=== PATIENT | male | born 1955 | race Caucasian/White ===

== ENCOUNTER 2021-10-25 07:37 | Day surgery (SDC) | payer OTHER ==
[2021-10-22 15:27] LABS: Potassium 4.1 mmol/L (3.5-5.1)
[2021-10-22 15:44] LABS: SARS-CoV-2 Antigen Rapid Res Negative (Negative)
--- NOTE | 2021-10-23 11:32 | EKG ---
Test Date: 2021-10-22 Test Time: 14:52:06 Accessioner: PARVIZ MEASUREMENT RESULTS: Intervals: Rate: 61 FL: 136 QRSD: 82 QT: 396 QTc: 398 Sanders: P: 59 FL: 136 QRS: 30 T: 42 INTERPRETIVE STATEMENTS: Normal sinus rhythm Normal ECG No previous ECG available for comparison Electronically Signed On 10-23-21 11:31:15 CDT by Mode Miller
[2021-10-25] MEDS ORDERED: SODIUM HYPOCHLORITE 0.25% 473 ML ONE (07:58)
[2021-10-25] MEDS ORDERED: BUPIVACAINE 0.25% PF 10 ML VIAL ONE (08:11)
[2021-10-25] MEDS ORDERED: propofoL 200 MG/20 ML VIAL IV ONE (08:14)
[2021-10-25] MEDS ORDERED: FENTANYL CITR 100 MCG/2 ML IV ONE (08:15)
[2021-10-25] MEDS ORDERED: MIDAZOLAM HCL 2 MG/2 ML INJ IV ONE (08:15)
[2021-10-25] MEDS ORDERED: CELECOXIB 100 MG CAPSULE ONE (08:16)
[2021-10-25] MEDS ORDERED: NA CHLORIDE 0.9% 50 ML ONE (08:16)
[2021-10-25] MEDS ORDERED: Ringers Lactate 1,000 ML IV ONE (08:16)
[2021-10-25] MEDS ORDERED: CEFAZOLIN SODIUM 1 GM/VIAL ONE (08:16)
[2021-10-25] MEDS ORDERED: ACETAMINOPHEN 500 MG TAB ONE (08:16)
[2021-10-25] MEDS ORDERED: BUPIVACAINE 0.25% PF 10 ML VIAL IJ ONE ×2 (09:17)
--- NOTE | 2021-10-25 09:31 | P.OP ---
Preoperative diagnosis: LEFT neck infected cyst Postoperative diagnosis: LEFT neck infected cyst Primary procedure: Wide Excision of LEFT neck infected cyst Anesthesia: GETA + local Estimated blood loss: <1 cc Specimen: LEFT Neck Cyst Findings: ~ 2cm x 1cm cyst consistend with sebaceous Complications: None Transferred to: Recovery Room Condition: Good
[2021-10-25] MEDS ORDERED: KETOROLAC 30 MG/ML INJ ONE (09:33)
--- NOTE | 2021-10-25 10:18 | OP ---
Date of Procedure: 10/25/2021 Surgeon: Marcela Gomes MD, Preoperative Diagnosis: Left neck infected cyst. Postoperative Diagnosis: Left neck infected cyst. Procedure Performed: A wide local excision of infected left sebaceous cyst. Anesthesia: General endotracheal plus local with 0.25% Marcaine. Estimated Blood Loss: Less than 1 cc. Specimen: Left neck cyst. Findings: A 2 cm x 1 cm cyst consistent with a sebaceous type cyst on the left neck near the medial aspect of the clavicle. Complications: None. Disposition: The patient was transferred to the recovery room in good condition. Procedure In Detail: After informed consent was obtained, the patient was brought to the operative r oom, prepped and draped in the usual sterile fashion after adequate anesthesia achieved. An elliptic al incision was made circumferentially around the area of the left medial clavicle down to subcutaneo us tissues with a 15 blade. Electrocautery was used to dissect down and circumferentially remove a c yst located in this area approximately 2 cm x 1 cm. The area was inspected at this point for hemosta sis after this was removed and sent off for pathologic examination. Hemostatic maneuvers were requir ed only minimally at the skin level. The area was then copiously irrigated and closed with interrupt ed 3-0 nylon suture in an interrupted fashion. Sterile dressing placed over top. The patient tolera marcela the procedure well without evidence of complication and transferred to PACU in good condition. All counts were correct at the end of the case. ROHINI/LUIZAL Voice ID: [id number] Report ID: [id number]
[2021-10-25 11:12] VITALS: BP 102/80; TEMP 97.3; O2SAT 94
== END 2021-10-25 10:45 | disposition home or self-care (01) ==
LOC: OR 07:37
PROVIDERS: ATTEND Surgery
PROC: 0JB50ZZ Excision of Left Neck Subcutaneous Tissue and Fascia, Open Approach (ICD-10-PCS; principal; 2021-10-25 08:45)
DX: L72.3 Sebaceous cyst (principal); L03.221 Cellulitis of neck; L08.9 Local infection of the skin and subcutaneous tissue, unspecified; Z20.822 Contact with and (suspected) exposure to COVID-19
CPT/HCPCS: 93005; 80048; 36415; 88304; 87811; 11422; J2704; J2250; J3010; J7120; J0690